=== PATIENT | male | born 1975 | race Caucasian/White ===

== ENCOUNTER 2021-04-04 10:15 | Day surgery (SDC) | payer BC ==
[2021-04-04] VITALS (11 sets, daily range): BP systolic 120–159; BP diastolic 74–94; PULSE 56–93; TEMP 97.3–99
[~2021-04-04] VITALS: Ht 172.7 cm; Wt 120.1 kg
[2021-04-04] MEDS ORDERED: PROTONIX20 MG PO (12:05)
[2021-04-04] MEDS ORDERED: LOFIBRA160 MG PO (12:06)
[2021-04-04] MEDS ORDERED: PRAVACHOL 40MG40 MG PO (12:06)
[2021-04-04] MEDS ORDERED: ASPIRIN 81M81 MG/TA2 PO (12:07)
[2021-04-04] MEDS ORDERED: PRILOTC (12:07)
[2021-04-04] MEDS ORDERED: JANUMXR1000-50 PO (12:07)
--- NOTE | 2021-04-04 18:30 | NUR ---
Patient arrived to floor from surgery around 1450. He is alert and oriented. Denies nausea and pain. He has been tolerating clear liquids so far. Patient has several questions about his diet. Explained full liquid diet and that the furniture crater will come see him in the morning. Helped him order food around 1730. No other changes at this time. Call light within reach.
--- NOTE | 2021-04-04 21:30 | NUR ---
Pt. sitting up in bed. Pt. is A&OX3, assessment complete. INT to lt. hand patent. Pt. denies pain or other needs, call light within reach.
[2021-04-05 03:12] VITALS: BP 118/66; PULSE 73; TEMP 98
[2021-04-05 07:51] VITALS: BP 130/77; PULSE 86; TEMP 98.5
--- NOTE | 2021-04-05 09:26 | NUR ---
Initial visit; Patient thanked [employer] for looking in on him and keeping him in [employer]'s prayers.
--- NOTE | 2021-04-05 10:12 | NUR ---
NATHANIEL met with the patient and his mother, Yadi (ph#[phone]), to discuss discharge plan. 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 He reports independence with ADLs and does not have any DME. The patient's PCP is Dr. Troy Terry and he receives his medications from [facility]. He reports no difficulties obtaining his meds. The patient does not have a DPOA-HC and he was not interested in completing one at this time. He states that he does not feel like one is needed at this time. He states that he is and has one child: Abdelrahman who is [id number]. He states that Abdelrahman is in a shelter though and would not be able to make medical decisions for him, if needed. He states that his mother is his next of kin. His father is . The patient plans to return home upon discharge. No additional needs at this time. *Discharge plan: home*
[2021-04-05 11:37] VITALS: BP 129/77; PULSE 74; TEMP 98.4
[2021-04-05] MEDS ORDERED: NORCO 325 MG-51 TAB PO (12:08)
--- NOTE | 2021-04-05 15:34 | NUR ---
Discharge orders discussed with patient and his mother, insturcted him to follow up with as we have scheduled, instructed him to conitnue previous home meds with no changes, explained that [facility] script sent to pharmacy for him and to take as prescribed for pain, IV removed, ambulatory and leaving with his mother, I escorted them out
== END 2021-04-05 15:36 | disposition home or self-care (01) ==
LOC: SDCO 10:15 → SURG 14:56 → SDCO 04-05 15:36
DX: K21.9 Gastro-esophageal reflux disease without esophagitis (principal); M10.9 Gout, unspecified; E78.5 Hyperlipidemia, unspecified; G47.33 Obstructive sleep apnea (adult) (pediatric); E11.9 Type 2 diabetes mellitus without complications; E78.1 Pure hyperglyceridemia; F32.9 Major depressive disorder, single episode, unspecified; F41.9 Anxiety disorder, unspecified; Z79.899 Other long term (current) drug therapy; Z82.49 Family history of ischemic heart disease and other diseases of the circulatory system
CPT/HCPCS: OP; J0330; J0690; J1100; J2405; J2704; J3010; J7030